=== PATIENT | male | born 1955 | race Caucasian/White ===

== ENCOUNTER 2018-08-05 18:58 | Emergency (ER) | payer MEDICARE ==
[~2018-08-05] VITALS: Ht 172.7 cm; Wt 112.2 kg
[2018-08-05 19:30] LABS: BASOPHILS # (AUTO) 0.14 x10^3/uL (0-0.1); BASOPHILS % (AUTO) 2 % (0-1); EOSINOPHILS # (AUTO) 0.22 x10^3/uL (0-0.4); EOSINOPHILS % (AUTO) 2 % (1-7); LYMPHOCYTES # (AUTO) 2.12 x10^3/uL (1-3.4); LYMPHOCYTES % (AUTO) 22 % (22-44); MD NO; MEAN CORPUSCULAR HEMOGLOBIN 30.9 pg (27.5-34.5); MEAN CORPUSCULAR HGB CONC 32.8 g/dL (33.2-36.2); MEAN CORPUSCULAR VOLUME 94.1 fL (81-97); MEAN PLATELET VOLUME 8.4 fL (7.4-10.4); MONOCYTES % (AUTO) 9 % (2-9); NEUTROPHILS % (AUTO) 65 % (42-75); PLATELET COUNT 187 x10^3/uL (130-400); RED BLOOD COUNT 4.94 x10^6/uL (4.38-5.82); RED CELL DISTRIBUTION WIDTH 13.8 % (9.4-14.8)
--- NOTE | 2018-08-05 19:37 | NUR ---
ASSUMED CARE OF PT AT THIS TIME.
[2018-08-05 19:44] LABS: ALANINE AMINOTRANSFERASE 26 U/L (12-78); ALBUMIN 3.5 g/dL (3.4-5.0); ANION GAP 5 mmol/L (5-15); CALCIUM 8.5 mg/dL (8.5-10.1); CHLORIDE 113 mmol/L (98-107); CREATININE 1.21 mg/dL (0.7-1.3)
--- NOTE | 2018-08-05 19:45 | NUR ---
PT IN CT BEFORE BEING ABLE TO ASSESS.
[2018-08-05 19:48] LABS: ALKALINE PHOSPHATASE 56 U/L (45-117); BILIRUBIN,TOTAL 0.5 mg/dL (0.2-1.0); TOTAL PROTEIN 7.3 g/dL (6.4-8.2); TROPONIN I < 0.015 ng/mL (0.000-0.045)
[2018-08-05] MEDS ORDERED: METO-93 PO (20:14)
[2018-08-05] MEDS ORDERED: RIVAROXABAN 20 MG TABLET PO ONE (20:30)
[2018-08-05] MEDS ORDERED: RIVAROXABAN 20 MG TABLET ONE (20:41)
[2018-08-05 20:56] VITALS: BP 145/102
== END 2018-08-05 20:59 | disposition home or self-care (01) ==
LOC: ED 20:53
DX: S06.891A Other specified intracranial injury with loss of consciousness of 30 minutes or less, initial encounter (principal); I48.2 Chronic atrial fibrillation; W01.0XXA Fall on same level from slipping, tripping and stumbling without subsequent striking against object, initial encounter; Y93.89 Activity, other specified; Y92.89 Other specified places as the place of occurrence of the external cause; Y99.8 Other external cause status
CPT/HCPCS: 36415; 70450; 71045; 72125; 80053; 83735; 84484; 85025; 93005; 99284

== ENCOUNTER 2019-09-29 07:37 | Day surgery (SDC) | payer MEDICARE ==
[~2019-09-29] VITALS: Ht 170.2 cm; Wt 104.5 kg
[~2019-09-29 07:37] MED LIST: METO-93 PO
[2019-09-29 08:09] VITALS: BP 131/77
[2019-09-29] MEDS ORDERED: DABI150C PO (12:39)
[2019-09-29] MEDS ORDERED: ALLO300T PO (12:39)
[2019-09-29] MEDS ORDERED: METO-93 PO (12:39)
== END 2019-09-29 13:45 | disposition home or self-care (01) ==
LOC: CACL 07:37
PROVIDERS: ATTEND Internal Medicine Cardiovascular Disease
DX: I48.0 Paroxysmal atrial fibrillation (principal); I10 Essential (primary) hypertension; M10.9 Gout, unspecified; G47.30 Sleep apnea, unspecified; Z79.899 Other long term (current) drug therapy; Z88.0 Allergy status to penicillin; Z88.1 Allergy status to other antibiotic agents
CPT/HCPCS: 92960

== ENCOUNTER 2020-03-29 09:03 | Day surgery (SDC) | payer MEDICARE ==
[~2020-03-29 09:03] MED LIST changes: +ALLO300T PO; +DABI150C PO
== END 2020-03-29 12:50 | disposition home or self-care (01) ==
LOC: CACL 09:03
PROVIDERS: ATTEND Internal Medicine Cardiovascular Disease
DX: I48.0 Paroxysmal atrial fibrillation (principal); Z53.8 Procedure and treatment not carried out for other reasons; E78.5 Hyperlipidemia, unspecified; I10 Essential (primary) hypertension; E66.9 Obesity, unspecified; Z82.49 Family history of ischemic heart disease and other diseases of the circulatory system; Z79.01 Long term (current) use of anticoagulants; Z79.899 Other long term (current) drug therapy; Z88.1 Allergy status to other antibiotic agents; Z88.0 Allergy status to penicillin; Z87.891 Personal history of nicotine dependence
CPT/HCPCS: 93005

== ENCOUNTER 2021-01-19 07:12 | Outpatient (CLI) | payer MEDICARE | END 2021-01-19 23:59 | disposition home or self-care (01) | LOC: CFH 07:12 → EDSTATUS 08:00 → CFH 23:59 | PROVIDERS: ATTEND Internal Medicine Cardiovascular Disease | DX: I25.10 Atherosclerotic heart disease of native coronary artery without angina pectoris (principal); J98.11 Atelectasis; R06.02 Shortness of breath | CPT/HCPCS: 75571 ==

== ENCOUNTER 2021-02-28 07:35 | Outpatient (CLI) | payer MEDICARE ==
[2021-02-28] MEDS ORDERED: REGADENOSON 0.4 MG/5 ML SYRINGE ONE (11:47)
== END 2021-02-28 23:59 | disposition home or self-care (01) ==
LOC: CVU 07:35 → CFH 23:59
PROVIDERS: ATTEND Internal Medicine Cardiovascular Disease
DX: I08.8 Other rheumatic multiple valve diseases (principal); R06.02 Shortness of breath
CPT/HCPCS: 78452; 93017; 93306; 93356; A9502; J2785